=== PATIENT | male | born 1955 | race Caucasian/White ===

== ENCOUNTER 2017-07-24 01:26 | Emergency (ER) | payer OTHER ==
[2017-07-24 01:56] LABS: #Eosinphils 0.2 thou/uL (0.0-0.7); #Lymphocytes 3.8 thou/uL (1.20-3.40); #Monocytes 0.4 thou/uL (0.11-0.59); #Neutrophils 3.6 thou/uL (1.40-6.50); %Basophils 0.3 % (0.0-1.0); %Eosinophils 2.2 % (0.0-10.0); %Lymphocytes 47.4 % (21.0-51.0); %Monocytes 5.5 % (0.0-10.0); Hematocrit 44.3 % (42.0-52.0); Mean Platelet Volume 6.2 fL (7.4-10.4); Red Blood Cell (RBC) Count 4.79 mill/uL (4.70-6.10)
[2017-07-24 02:10] LABS: ALT (SGPT) 33 U/L (8-55); AST (SGOT) 19 U/L (5-34); Alkaline Phosphatase 65 U/L (40-150); Anion Gap 12 mmol/L (10-20); BUN (Urea Nitrogen) 17 mg/dL (8.4-25.7); Bilirubin, Total 0.3 mg/dL (0.2-1.2); Calc. Creatinine Clearance 0 mL/min (70-130); Calcium 9.5 mg/dL (7.8-10.44); Carbon Dioxide 24 mmol/L (22-29); Chloride 107 mmol/L (98-107); Estimated GFR-MDRD Greater than 90; Globulin 3.8 g/dL (2.4-3.5); Protein, Total 7.7 g/dL (6.0-8.3)
[2017-07-24] MEDS ORDERED: Morphine 10 MG/ML VIAL ONE (02:48)
[2017-07-24] MEDS ORDERED: Ondansetron ODT 4 MG TAB ONE (02:48)
[2017-07-24] MEDS ORDERED: Benzocaine 20% Spray 60 ML CAN ONE (05:09)
--- NOTE | 2017-07-24 08:18 | CT ---
PRELIMINARY REPORT/[facility]/EMERGENCY AFTER HOURS PROCEDURE: EXAM: CT Abdomen and Pelvis Without Intravenous Contrast CLINICAL HISTORY: 61 years old, male; Pain; Abdominal pain; Flank; Right; Patient HX: R/O stone TECHNIQUE: Axial computed tomography images of the abdomen and pelvis without intravenous contrast. Coronal reformatted images were created and reviewed. COMPARISON: No relevant prior studies available. FINDINGS: Lower thorax: No acute findings. ABDOMEN: Liver: No acute findings. Gallbladder and bile ducts: No acute findings. No calcified stones. No ductal dilation. Pancreas: No acute findings. No ductal dilation. Spleen: No acute findings. No splenomegaly. Adrenals: No acute findings. No mass. Kidneys and ureters: Mild right hydronephrosis and stranding secondary to 4 mm proximal ureteral sto ne. No left sided obstruction. Stomach and bowel: No acute findings. No obstruction. No mucosal thickening. Appendix: No findings to suggest acute appendicitis. PELVIS: Bladder: No acute findings. No stones. Reproductive: Bilateral hydroceles, incompletely visualized. ABDOMEN and PELVIS: Intraperitoneal space: No acute findings. No free air. No significant fluid collection. Bones/joints: Chronic degenerative spinal changes without acute fracture or dislocation. Soft tissues: No acute findings. Vasculature: There are atheromatous changes of the abdominal aorta without aneurysm. Lymph nodes: No acute findings. No enlarged lymph nodes. IMPRESSION: Obstructing proximal right ureteral stone. Bilateral hydroceles, incompletely visualized. Thank you for allowing us to participate in the care of your patient. Dictated and Authenticated by: Vanessa Wilson MD 07/24/2017 4:07 AM Central Time ([place] \T\ [place]) FINAL REPORT ABDOMEN AND PELVIC CT SCAN WITHOUT IV CONTRAST: EMERGENCY AFTER HOURS EXAMINATION TIME: 3:42 a.m. DATE: 07/24/17. Mildly obstructing right proximal ureteral calculus 0.4 cm. Bilateral hydroceles. POS: [facility]
== END 2017-07-24 04:30 | disposition home or self-care (01) ==
LOC: ERS 01:26
DX: N13.2 Hydronephrosis with renal and ureteral calculous obstruction (principal); E78.5 Hyperlipidemia, unspecified; I10 Essential (primary) hypertension
CPT/HCPCS: 36415; 74176; 80053; 85025; 96361; 96374; J2270; Q0162

== ENCOUNTER 2017-07-27 03:22 | Emergency (ER) | payer OTHER ==
[2017-07-27] MEDS ORDERED: Morphine 10 MG/ML VIAL ONE (03:57)
[2017-07-27] MEDS ORDERED: Ketorolac Tromethamine 30 MG/ML VIAL ONE (03:57)
[2017-07-27] MEDS ORDERED: Ondansetron HCl/PF 4 MG/2 ML Vial ONE (04:25)
[2017-07-27] MEDS ORDERED: Ondansetron ODT 4 MG TAB ONE (04:29)
[2017-07-27] MEDS ORDERED: Tamsulosin HCl 0.4 MG CAP PO SCH (04:30)
[2017-07-27 04:38] LABS: Bilirubin Negative (Negative); Blood, Urine Large (Negative); Glucose, Urine (Dipstick) Negative (Negative); Ketone, Urine Negative (Negative); Nitrite Negative (Negative); Protein, Urine (Dipstick) Negative (Neg-Trace); Urobilinogen 0.2 mg/dL (0.2-1.0)
[2017-07-27 04:40] LABS: Bacteria/HPF None Seen HPF (None Seen); Hyaline Casts/LPF 0-3 HYALINE CAST LPF (0-3 Hyaline); Squamous Epithelial 0-3 HPF (0-3); WBC/HPF 0-3 HPF (0-3)
[2017-07-27] MEDS ORDERED: HYDROcodone/Acetaminophen 10/325 mg Tablet ONE (06:59)
== END 2017-07-27 07:17 | disposition home or self-care (01) ==
LOC: ERS 03:22
DX: N20.1 Calculus of ureter (principal); E78.5 Hyperlipidemia, unspecified; I10 Essential (primary) hypertension; Z79.899 Other long term (current) drug therapy
CPT/HCPCS: 81003; 81015; 96361; 96374; 96375; J1885; J2270; J2405; Q0162

== ENCOUNTER 2017-08-03 11:15 | Outpatient (CLI) | payer OTHER ==
[2017-08-03 11:42] LABS: Bilirubin Negative (Negative); Blood, Urine Negative (Negative); Glucose, Urine (Dipstick) Negative (Negative); Ketone, Urine Negative (Negative); Nitrite Negative (Negative); Protein, Urine (Dipstick) Negative (Neg-Trace); Urobilinogen 0.2 mg/dL (0.2-1.0)
[2017-08-03 11:56] LABS: Bacteria/HPF None Seen HPF (None Seen); Hyaline Casts/LPF 0-3 HYALINE CAST LPF (0-3 Hyaline); RBC/HPF None Seen HPF (0-3); Squamous Epithelial None Seen HPF (0-3); WBC/HPF None Seen HPF (0-3)
--- NOTE | 2017-08-03 14:33 | RAD ---
AP ABDOMINAL RADIOGRAPH: Date: 08-03-17 History: Right ureteral stone. Comparison: CT abdomen/pelvis, 07-24-17. FINDINGS: There is a calcification overlying the right hemipelvis which has lucent center and likely represents a small phlebolith. The right ureteral calculus adjacent to the inferior endplate of the L3 vertebra l body is not definitely visualized on this examination although there is questionable faint area of increased density. No additional suspicious calcifications are seen. Bowel gas pattern is nonspecific . Mild degenerative changes are seen in the spine. IMPRESSION: 1. Nonspecific bowel gas pattern. 2. No definitive suspicious calcifications are seen. The proximal right ureteral calculus is not well visualized on this exam. POS: [facility]
== END 2017-08-03 11:16 | disposition home or self-care (01) ==
LOC: RAD 11:15
PROVIDERS: ATTEND Urology
DX: N20.1 Calculus of ureter (principal)
CPT/HCPCS: 74000; 81001

== ENCOUNTER 2017-08-12 03:30 | Emergency (ER) | payer OTHER ==
[2017-08-12] MEDS ORDERED: Ondansetron HCl/PF 4 MG/2 ML Vial ONE (03:48)
[2017-08-12] MEDS ORDERED: Ketorolac Tromethamine 30 MG/ML VIAL ONE (03:48)
[2017-08-12 04:31] LABS: ALT (SGPT) 49 U/L (8-55); AST (SGOT) 33 U/L (5-34); Alkaline Phosphatase 73 U/L (40-150); Anion Gap 13 mmol/L (10-20); BUN (Urea Nitrogen) 15 mg/dL (8.4-25.7); Bilirubin, Total 0.3 mg/dL (0.2-1.2); Calc. Creatinine Clearance 0 mL/min (70-130); Calcium 9.3 mg/dL (7.8-10.44); Carbon Dioxide 27 mmol/L (22-29); Chloride 107 mmol/L (98-107); Estimated GFR-MDRD 61; Globulin 3.9 g/dL (2.4-3.5); Protein, Total 7.9 g/dL (6.0-8.3)
[2017-08-12 04:36] LABS: Band 2 % (5-11); Hematocrit 44.8 % (42.0-52.0); Mean Platelet Volume 6.5 fL (7.4-10.4); Neutrophil 27 % (42-75); Reactive Lymphocytes 11 % (0-10); White Blood Cell (WBC) Count 10.7 thou/uL (4.8-10.8)
[2017-08-12 05:16] LABS: Bilirubin Negative (Negative); Blood, Urine Small (Negative); Glucose, Urine (Dipstick) Negative (Negative); Ketone, Urine Negative (Negative); Nitrite Negative (Negative); Protein, Urine (Dipstick) 30 mg/dL (Neg-Trace); Urobilinogen 0.2 mg/dL (0.2-1.0)
[2017-08-12] MEDS ORDERED: Morphine 2 mg/2ml in 0.9% NaCl PF SYRINGE ONE (05:16)
[2017-08-12 05:19] LABS: Bacteria/HPF None Seen HPF (None Seen); Hyaline Casts/LPF 0-3 HYALINE CAST LPF (0-3 Hyaline); Squamous Epithelial 0-3 HPF (0-3); WBC/HPF 0-3 HPF (0-3)
--- NOTE | 2017-08-12 10:22 | CT ---
PRELIMINARY REPORT/[facility]/EMERGENCY AFTER HOURS PROCEDURE: EXAM: CT Abdomen and Pelvis Without Intravenous Contrast CLINICAL HISTORY: 61 years old, male; Pain; Abdominal pain; Generalized; Patient HX: R/O stone TECHNIQUE: Axial computed tomography images of the abdomen and pelvis without intravenous contrast. Coronal reformatted images were created and reviewed. COMPARISON: CT Stone Protocol 2017-07-24 03:41 FINDINGS: Lower thorax: No acute findings. ABDOMEN: Liver: Unremarkable. Gallbladder and bile ducts: Unremarkable. Pancreas: Unremarkable. Spleen: Normal. Adrenals: Normal. Kidneys and ureters: 4 mm right ureteral stone a few centimeters proximal to the UVJ, previously just beyond the UPJ; mild hydroureteronephrosis and perinephric fat stranding, increased. No other urolit hiasis. Unremarkable left kidney. Stomach and bowel: Unremarkable. No obstruction. Appendix: No findings to suggest acute appendicitis. PELVIS: Bladder: Underdistended. Reproductive: Unremarkable. ABDOMEN and PELVIS: Intraperitoneal space: No free air. No significant fluid collection. Bones/joints: Bilateral L5-S1 spondylolysis and grade 1 anterolisthesis. Soft tissues: Unremarkable. Vasculature: Unremarkable. Lymph nodes: Unremarkable. No enlarged lymph nodes. IMPRESSION: Distal passage of the right ureteral stone with mild hydroureteronephrosis and perinephric fat strand ing, increased. Thank you for allowing us to participate in the care of your patient. Dictated and Authenticated by: Adarsh Cartagena MD 08/12/2017 4:32 AM Central Time ([place] & [place]) FINAL REPORT EMERGENCY AFTER HOURS CT ABDOMEN AND PELVIS: Date: 08/12/17 IMPRESSION: I agree with the preliminary interpretation given by Hailey. Interval distal migration of previously de scribed right ureteral calculus with persistent right hydronephrosis and right hydroureter. The calcu matthew is several centimeters proximal to the UVJ on the current study. POS: [facility]
== END 2017-08-12 06:04 | disposition home or self-care (01) ==
LOC: ERS 03:30
DX: N13.30 Unspecified hydronephrosis (principal); E78.5 Hyperlipidemia, unspecified; I10 Essential (primary) hypertension; Z85.828 Personal history of other malignant neoplasm of skin
CPT/HCPCS: 74176; 80053; 81003; 81015; 83605; 85025; 87086; 96374; 96375; J1885; J2270; J2405

== ENCOUNTER 2017-08-24 08:08 | Outpatient (CLI) | payer OTHER ==
--- NOTE | 2017-08-24 09:11 | CT ---
CT OF THE ABDOMEN AND PELVIS WITHOUT IV CONTRAST: HISTORY: Right-sided abdominal pain for 3-4 weeks. COMPARISON: Prior exam dated 08/12/17. FINDINGS: The lung bases are clear. There is stable mild right hydronephrosis. The previously seen 3.6 mm calculus at the distal right u reter is now at the right UVJ. Unopacified liver, spleen, pancreas, and adrenal glands appear within normal limits. There is a stab le slightly hypodense exophytic lesion off the inferior pole of the right kidney. This is seen as a small cyst on the right upper quadrant ultrasound dated 05/19/16. No free fluid or enlarged lymph nodes are evident. There is a normal appendix in the right lower jeannie drant. Scattered degenerative and osteoarthritic change. IMPRESSION: 1. Distal migration of the right ureteral stone now at the level of the ureterovesical junction caus ing stable mild right hydronephrosis. 2. Stable right renal cyst. 3. Other findings as above. POS: [facility]
[2017-08-24 10:31] LABS: Bilirubin Negative (Negative); Blood, Urine Negative (Negative); Glucose, Urine (Dipstick) Negative (Negative); Ketone, Urine Negative (Negative); Nitrite Negative (Negative); Protein, Urine (Dipstick) Negative (Neg-Trace); Urobilinogen 0.2 mg/dL (0.2-1.0)
[2017-08-24 10:36] LABS: Hematocrit 47.7 % (42.0-52.0); Mean Platelet Volume 6.6 fL (7.4-10.4); Red Blood Cell (RBC) Count 5.18 mill/uL (4.70-6.10); White Blood Cell (WBC) Count 6.1 thou/uL (4.8-10.8)
[2017-08-24 10:47] LABS: Bacteria/HPF None Seen HPF (None Seen); Hyaline Casts/LPF 0-3 HYALINE CAST LPF (0-3 Hyaline); RBC/HPF 0-3 HPF (0-3); Squamous Epithelial None Seen HPF (0-3); WBC/HPF None Seen HPF (0-3)
[2017-08-24 10:55] LABS: Anion Gap 11 mmol/L (10-20); BUN (Urea Nitrogen) 11 mg/dL (8.4-25.7); Calc. Creatinine Clearance 0 mL/min (70-130); Calcium 9.7 mg/dL (7.8-10.44); Carbon Dioxide 28 mmol/L (22-29); Chloride 104 mmol/L (98-107); Estimated GFR-MDRD Greater than 90
== END 2017-08-24 08:09 | disposition home or self-care (01) ==
LOC: CT 08:08
PROVIDERS: ATTEND Urology
DX: Z01.818 Encounter for other preprocedural examination (principal); N20.1 Calculus of ureter; N28.1 Cyst of kidney, acquired
CPT/HCPCS: 74176; 80048; 81001; 85027; 87086; 93005; 93010

== ENCOUNTER 2017-08-26 06:09 | Day surgery (SDC) | payer OTHER ==
[2017-08-24 08:17] VITALS: BMI 29.1
[2017-08-26] MEDS ORDERED: Levofloxacin 500 mg/D5W 100 ml Premix Bag ONE (06:26)
[2017-08-26 06:44] LABS: PTT 36.7 SEC (22.9-36.1); Prothrombin Time 13.7 SEC (12.0-14.7)
[2017-08-26] MEDS ORDERED: Promethazine HCl 25 MG/ML VIAL ONE (07:10)
[2017-08-26] MEDS ORDERED: Fentanyl 100 MCG/2 ML VIAL ONE (07:10)
[2017-08-26] MEDS ORDERED: Midazolam HCl 2 mg/2 ml Vial ONE (07:10)
[2017-08-26] MEDS ORDERED: Iothalamate Meglumine 60% 50 ML VIAL FS ONE (07:14)
[2017-08-26] MEDS ORDERED: Famotidine/PF 20 mg/2ml Vial ONE (07:40)
--- NOTE | 2017-08-26 09:06 | OP ---
DATE OF PROCEDURE: 08/26/2017 SERVICE: Urology. SURGEON: Jassi Santana M.D. PREOPERATIVE DIAGNOSIS: Right ureteral stone. POSTOPERATIVE DIAGNOSIS: Right ureteral stone. PROCEDURES PERFORMED: Right ureteroscopy, laser lithotripsy, basket extraction of stone, and placeme nt of a 6 x 26 double-J stent. INDICATIONS FOR PROCEDURE: Mr. Ford is a 61-year-old white male who initially presented to md for right flank pain. CT at that time demonstrated a 4 mm proximal right ureteral stone. He underwent a trial of medical expulsive therapy, but failed to pass the stone. Repeat CT prior to his procedure demonstrated that the stone was now in the distal ureter; however, there were no other stones noted a nd he had still not passed the stone. He is now coming in for removal of the stone as he has had an adequate trial of passage without relief of symptoms or ability to pass this stone. All risks and be nefits have been explained. DESCRIPTION OF PROCEDURE: After identification of armband and verification of consent, the patient w as brought to the operating room where he underwent general anesthesia with LMA. He was placed in do rsal lithotomy position and prepped and draped in the usual sterile fashion. After appropriate timeo ut, a lubricated 22 Swedish rigid cystoscope was introduced per urethra into the bladder. Attention w as turned to the right ureteral orifice which was cannulated with a 0.035 sensor wire up to the level of the renal pelvis. The bladder was then emptied and the cystoscope removed leaving the wire in pl matt as a safety wire. A semi rigid ureteroscope was then passed alongside the sensor wire into the b ladder and then into the distal ureter where immediately the stone was apparent. A 365 micron laser fiber was then used to fragment the stone into small pieces and the 1.9 Swedish 0 tip nitinol basket w as used to grasp the remaining fragments and remove them for stone analysis. Upon final ureteroscopy , there did not appear to be any other fragments within the ureter. There was some mild mucosal mer rosa, but no other significant issues. The ureteroscope was then withdrawn and the cystoscope was ba ckloaded over the sensor wire back into the bladder. A 6 x 26 double-J stent was advanced over the s ensor wire up to the level of the renal pelvis. The wire was then removed leaving a good curl in the pelvis and good curl in the bladder. The bladder was then emptied and the cystoscope removed. The patient awakened and taken to PACU for recovery in stable condition. COMPLICATIONS: None. ESTIMATED BLOOD LOSS: Minimal. RETAINED TUBES AND DRAINS: A 6 x 26 double-J stent on the right. SPECIMENS: Stone for stone analysis. DISPOSITION: The patient will be discharged home and follow up with me in 1 week for cystoscopy and stent removal.
[2017-08-26] MEDS ORDERED: Ketorolac Tromethamine 30 MG/ML VIAL ONE (15:38)
[2017-08-26] MEDS ORDERED: Dexamethasone 20 MG/5 ML VIAL ONE (15:38)
[2017-08-26] MEDS ORDERED: PROPOFOL 200 MG/20 ML VIAL ONE (15:38)
[2017-08-26] MEDS ORDERED: Lidocaine 1% PF 5 ML VIAL ONE (15:38)
[2017-08-26] MEDS ORDERED: ePHEDrine/0.9% NaCl/PF SYRINGE 50 mg/10 ml ONE (15:38)
[2017-08-26] MEDS ORDERED: PHENYLEPHRINE-NS 100 MCG/ML 10 ML SYRINGE ONE (15:38)
[2017-08-26] MEDS ORDERED: Ondansetron HCl/PF 4 MG/2 ML Vial ONE (15:38)
[2017-08-31 13:16] LABS: CA Oxalate Monohydrate 98 % (.); Color Brown (.)
== END 2017-08-26 10:07 | disposition home or self-care (01) ==
LOC: SDC 06:09
PROVIDERS: ATTEND Urology
PROC: 0T768DZ Dilation of Right Ureter with Intraluminal Device, Via Natural or Artificial Opening Endoscopic (ICD-10-PCS; principal; 2017-08-26)
PROC: 0TF68ZZ Fragmentation in Right Ureter, Via Natural or Artificial Opening Endoscopic (ICD-10-PCS; principal; 2017-08-26)
DX: N20.1 Calculus of ureter (principal); E78.2 Mixed hyperlipidemia; I10 Essential (primary) hypertension; N43.3 Hydrocele, unspecified; M10.9 Gout, unspecified; Z85.828 Personal history of other malignant neoplasm of skin; Z87.891 Personal history of nicotine dependence; Z88.8 Allergy status to other drugs, medicaments and biological substances; Z79.899 Other long term (current) drug therapy
CPT/HCPCS: 36415; 76000; 82365; 85610; 85730; 88300; C1769; J1100; J1885; J1956; J2001; J2250; J2405; J2550; J2704; J3010; Q9961; S0028

== ENCOUNTER 2018-03-02 09:16 | Outpatient (CLI) | payer BC ==
[2018-03-02 10:44] LABS: Hemoglobin 15.6 g/dL (14.0-18.0); Mean Corpuscular HGB CONC 35.9 g/dL (32.0-36.0); Mean Corpuscular Volume 89.1 fL (78.0-98.0); Mean Platelet Volume 6.2 fL (7.4-10.4); Platelet Count 283 thou/uL (130-400); RBC Distribution Width 11.8 % (11.5-14.5); Red Blood Cell (RBC) Count 4.88 mill/uL (4.70-6.10); White Blood Cell (WBC) Count 7.3 thou/uL (4.8-10.8)
--- NOTE | 2018-03-02 11:13 | RAD ---
PA AND LATERAL VIEWS CHEST: Date: 03/02/18 HISTORY: Preoperative evaluation. FINDINGS: Comparison made with exam of 04/28/16. The heart size is normal. The lungs are expanded without focal areas of consolidation, pneumothorax, or pleural effusions. No acute osseous abnormalities are seen. IMPRESSION: No radiographic evidence of acute cardiopulmonary process. POS: [facility]
[2018-03-02 11:34] LABS: Anion Gap 15 mmol/L (10-20); BUN (Urea Nitrogen) 13 mg/dL (8.4-25.7); Calc. Creatinine Clearance 0 mL/min (70-130); Calcium 9.5 mg/dL (7.8-10.44); Carbon Dioxide 23 mmol/L (23-31); Chloride 106 mmol/L (98-107); Estimated GFR-MDRD Greater than 90; Glucose 92 mg/dL (80-115); Potassium 4.6 mmol/L (3.5-5.1); Sodium 139 mmol/L (136-145)
== END 2018-03-02 09:17 | disposition home or self-care (01) ==
LOC: LABBT 09:16
PROVIDERS: ATTEND Dentist Oral and Maxillofacial Surgery
DX: Z01.818 Encounter for other preprocedural examination (principal); Q38.1 Ankyloglossia
CPT/HCPCS: 71046; 80048; 85027; 93005; 93010

== ENCOUNTER 2018-03-07 06:05 | Day surgery (SDC) | payer BC ==
[2018-03-02 09:37] VITALS: BMI 27.1
[2018-03-07] MEDS ORDERED: Dexamethasone 4 mg/ml Vial ONE (06:20)
[2018-03-07] MEDS ORDERED: Clindamycin/D5W 900 mg/50 ml Premix Bag ONE (06:20)
[2018-03-07] MEDS ORDERED: Lidocaine 1% w/Epinephrine 1:100K 30 ML VIAL ONE (06:28)
[2018-03-07] MEDS ORDERED: Hydrocortisone 1% Cream 30 GM TUBE ONE (06:28)
[2018-03-07] MEDS ORDERED: Chlorhexidine Gluconate 15 ML UDCUP SSP ONE ×2 (06:28→06:29)
[2018-03-07] MEDS ORDERED: Midazolam HCl 2 mg/2 ml Vial ONE (07:03)
[2018-03-07] MEDS ORDERED: Fentanyl 250 MCG/5 ML VIAL ONE (07:03)
[2018-03-07] MEDS ORDERED: HYDROmorphone 0.5 MG/0.5 ML SYRINGE ONE (07:19)
[2018-03-07] MEDS ORDERED: Ondansetron HCl/PF 4 MG/2 ML Vial ONE (08:04)
[2018-03-07] MEDS ORDERED: Fentanyl 100 MCG/2 ML VIAL ONE (09:48)
--- NOTE | 2018-03-07 10:51 | OP ---
DATE OF PROCEDURE: 03/07/2018 PREOPERATIVE DIAGNOSES: 1. Bilateral mandibular lingual guera. 2. Ankyloglossia. POSTOPERATIVE DIAGNOSES: 1. Large bilateral mandibular guera. 2. Ankyloglossia. PROCEDURES PERFORMED: Surgical removal of bilateral lingual guera. SURGEON: Braeden Carrillo D.D.S. COMPLICATIONS: None. SPECIMENS: None. DRAINS: None. DISPOSITION: The patient was stable, extubated, and transferred to the postop recovery unit. ANESTHESIA: General endotracheal anesthesia through nasal tube. BRIEF PATIENT HISTORY/PROCEDURE IN DETAIL: This is a 62-year-old white male with history of sleep ap carolynn as well as difficulty speaking and moving his tongue due to large bilateral lingual guera. The pa tienaeem said that of note, the one of the lower right side seems to be growing rapidly over the last 2 years. The patient was taken to the operating room and prepped and draped in sterile fashion. A throat pack was placed. Infiltration with 1% lidocaine 1:10,000 epinephrine as well as bilateral inferior alveo lar nerve blocks were given. A lingual circular incision was made around the necks of the teeth from the second molar on the lower right, the first molar on the lower left. A full thickness mucoperios teal flap was elevated along the lingual of the mandible. On the right side of note, the tissue was very thin and friable as well as having a massive mandibular lingual guera which crossed the midline. There were several friable areas that had tears in the mucosa. Once a full thickness mucoperiosteal flap was elevated over the guera, a drill 703 was used to make a small trough at the junction of the guera to the mandible. They were then removed with a gentle chisel. Remaining protuberant areas were smoothed with a 703 bur. The areas were irrigated thoroughly. Closure was done with 4-0 chromic gu t. There was no excessive bleeding, no signs of hematoma formation. The throat pack was then remove d. Oropharynx was suctioned with Yankauer suction. The closure was done with an interdental 4-0 chr omic gut.
== END 2018-03-07 11:40 | disposition home or self-care (01) ==
LOC: SDC 06:05
PROVIDERS: ATTEND Dentist Oral and Maxillofacial Surgery
DX: M27.0 Developmental disorders of jaws (principal); Q38.1 Ankyloglossia; I10 Essential (primary) hypertension; Z79.899 Other long term (current) drug therapy
CPT/HCPCS: 96374; J1100; J1170; J2001; J2250; J2405; J3010; J3490

== ENCOUNTER 2018-11-08 14:59 | Outpatient (CLI) | payer BC ==
[2018-11-08 13:09] LABS: Estimated GFR-MDRD - POC Greater than 90
--- NOTE | 2018-11-08 14:33 | CT ---
CT SOFT TISSUE NECK: History: Sialadenitis. Right sided neck mass. Technique: Contrast enhanced CT images of the soft tissue neck obtained. FINDINGS: The paranasal sinuses are well aerated. No significant evidence of pharyngeal mucosal masses are seen. The right submandibular gland has a 2 mm sialolith with adjacent area of ductal dilatation. No other definite sialolith seen. No evidence o f lymphadenopathy is seen. The thyroid gland is unremarkable. IMPRESSION: 1. 2 mm right submandibular gland sialolith. POS: [facility]
[~2018-11-08 14:59] MED LIST: Iopamidol 370 76% 100 ML VIAL ONE
== END 2018-11-08 15:00 | disposition home or self-care (01) ==
LOC: BICCT 14:59
PROVIDERS: ATTEND Otolaryngology Plastic Surgery within the Head & Neck
DX: K11.20 Sialoadenitis, unspecified (principal); K11.5 Sialolithiasis
CPT/HCPCS: 70491; 82565

== ENCOUNTER 2018-12-07 12:05 | Day surgery (SDC) | payer BC ==
[2018-12-06 16:29] VITALS: BMI 27.8
[2018-12-07] MEDS ORDERED: Lidocaine 1% w/Epinephrine 1:100K 20 ML VIAL ONE (13:58)
[2018-12-07] MEDS ORDERED: Fentanyl 100 MCG/2 ML VIAL ONE ×2 (14:07→15:22)
[2018-12-07] MEDS ORDERED: Meperidine HCl/PF 25 MG/ML VIAL ONE (15:16)
[2018-12-07] MEDS ORDERED: Hydrocodone-Acetamin 15 ML UDCUP ONE (16:27)
--- NOTE | 2018-12-08 08:47 | OP ---
DATE OF PROCEDURE: 12/07/2018 PREOPERATIVE DIAGNOSIS: Chronic right submandibular gland sialoadenitis. POSTOPERATIVE DIAGNOSES: Chronic right submandibular gland sialoadenitis. PROCEDURE PERFORMED: Excision of right submandibular gland. ESTIMATED BLOOD LOSS: 10 mL. COMPLICATIONS: None. ANESTHESIA: GETA. DESCRIPTION OF PROCEDURE: The patient was taken to the operating room and placed supine on the table. General endotracheal anesthesia was obtained by the Anesthesia Staff. The head was tilted and gently exposing the right neck and shoulder roll was placed and the patient was prepped and draped in standard surgical fashion. Following this, an incision was made, approximately 2 cm below the angle of the mandible through skin and subcutaneous tissue and through the platysmal layer. Subplatysmal elevation was elevated up to the level of the mandible. Following this, the fascia overlying the submandibular gland was elevated along with the marginal mandibular nerve and was retracted superiorly. Following this, the gland was freed from its posterior attachments to the facial vein and the facial vein and artery were then suture ligated before crossing the mandible area. Following this, the gland was displaced inferiorly and the lingual nerve was identified. Following this, the post ganglionic fibers from the lingual nerves were suture ligated adjacent to the submandibular gland. Following this, the gland was from the mylohyoid muscle anteriorly and the hypoglossal nerve was identified. Following this, the duct of the submandibular gland was suture ligated immediately adjacent to the floor of the mouth. Following this, the gland was removed. The wound was irrigated. A small drain was placed and the wound was closed using 3-0 Monocryl stitches for the platysmal layer and 4-0 for the subcuticular layer. Dermabond was placed for the skin. The patient tolerated the procedure well. Job ID: [id number]
== END 2018-12-07 18:30 | disposition home or self-care (01) ==
LOC: SDC 12:05
PROVIDERS: ATTEND Otolaryngology Plastic Surgery within the Head & Neck
PROC: 0CTG0ZZ Resection of Right Submaxillary Gland, Open Approach (ICD-10-PCS; principal; 2018-12-07)
DX: K11.23 Chronic sialoadenitis (principal); K11.5 Sialolithiasis; I10 Essential (primary) hypertension; M10.9 Gout, unspecified; J30.2 Other seasonal allergic rhinitis; H90.3 Sensorineural hearing loss, bilateral; H93.19 Tinnitus, unspecified ear; Z87.891 Personal history of nicotine dependence; Z79.899 Other long term (current) drug therapy
CPT/HCPCS: 88307; J2001; J2175; J3010

== ENCOUNTER 2019-01-24 08:53 | Outpatient (CLI) | payer BC | END 2019-01-24 08:54 | disposition home or self-care (01) | LOC: CTENTCT 08:53 | PROVIDERS: ATTEND Otolaryngology Plastic Surgery within the Head & Neck | DX: J32.9 Chronic sinusitis, unspecified (principal) | CPT/HCPCS: 70486 ==

== ENCOUNTER 2019-07-12 06:35 | Day surgery (SDC) | payer BC ==
[2019-07-11 12:50] VITALS: BMI 28.7
[2019-07-12] MEDS ORDERED: Midazolam HCl 2 mg/2 ml Vial ONE (07:49)
[2019-07-12] MEDS ORDERED: Fentanyl 100 MCG/2 ML VIAL ONE (07:49)
[2019-07-12] MEDS ORDERED: Bacitracin Zinc Ointment 30 gm TUBE ONE (08:15)
[2019-07-12] MEDS ORDERED: Lidocaine 1% w/Epinephrine 1:100K 20 ML VIAL ONE (09:54)
[2019-07-12] MEDS ORDERED: Ondansetron PF 4 MG/2 ML Vial ONE (11:33)
[2019-07-12] MEDS ORDERED: Lidocaine 1% PF 5 ML VIAL ONE (11:33)
[2019-07-12] MEDS ORDERED: Dexamethasone 20 MG/5 ML VIAL ONE (11:33)
[2019-07-12] MEDS ORDERED: PROPOFOL 200 MG/20 ML VIAL ONE (11:33)
--- NOTE | 2019-07-12 16:56 | EKG ---
Test Reason : PREOP Blood Pressure : / mmHG Vent. Rate : 057 BPM Atrial Rate : 057 BPM P-R Int : 154 ms QRS Dur : 140 ms QT Int : 438 ms P-R-T Axes : 050 092 031 degrees QTc Int : 426 ms Sinus bradycardia Right bundle branch block Abnormal ECG Confirmed by TREVOR MATTSON ([id number]) on 07/12/2019 4:55:44 PM Referred By: DARIUS Confirmed By:TREVOR MATTSON
--- NOTE | 2019-07-13 14:14 | OP ---
DATE OF PROCEDURE: 07/12/2019 PREOPERATIVE DIAGNOSES: 1. Left tympanic membrane perforation. 2. Left conductive hearing loss. POSTOPERATIVE DIAGNOSES: 1. Left tympanic membrane perforation. 2. Left conductive hearing loss. PROCEDURES PERFORMED: 1. Left fat graft myringoplasty. 2. Binocular otomicroscopy. ESTIMATED BLOOD LOSS: 0 mL. COMPLICATIONS: None. ANESTHESIA: Mask. DESCRIPTION OF PROCEDURE: The patient was taken to the operating room, placed supine on the table. Mask anesthesia was obtained by the Anesthesia Staff. 1% lidocaine with 1:100,000 epinephrine was injected into the posterior aspect of the left earlobe. The operating microscope was then brought in the field and the tympanic membrane was visualized. There was noted to be a 15% to 20% perforation of the central tympanic membrane on the left side. The middle ear mucosa was noted to be healthy today. A Teran needle was used to rim the edges of this perforation and cupped forceps were used to remove the edges. Following this, a small incision was made on the posterior aspect of the left earlobe and a 1 x 1 cm squared piece of fat was harvested. The wound was closed using chromic gut stitches. Following this, the operating microscope was used along with a Teran needle and alligator forceps and cupped forceps to position the fat graft into a dumbbell fashion. The patient tolerated the procedure well. Job ID: [id number]
== END 2019-07-12 09:47 | disposition home or self-care (01) ==
LOC: SDC 06:35
PROVIDERS: ATTEND Otolaryngology Plastic Surgery within the Head & Neck
PROC: 09U887Z Supplement Left Tympanic Membrane with Autologous Tissue Substitute, Via Natural or Artificial Opening Endoscopic (ICD-10-PCS; principal; 2019-07-12)
DX: H72.02 Central perforation of tympanic membrane, left ear (principal); H90.12 Conductive hearing loss, unilateral, left ear, with unrestricted hearing on the contralateral side; H61.22 Impacted cerumen, left ear; I10 Essential (primary) hypertension; M10.9 Gout, unspecified; J30.9 Allergic rhinitis, unspecified; J34.3 Hypertrophy of nasal turbinates; Z87.891 Personal history of nicotine dependence; Z79.51 Long term (current) use of inhaled steroids; Z79.899 Other long term (current) drug therapy; Z88.8 Allergy status to other drugs, medicaments and biological substances
CPT/HCPCS: 93005; 93010; J1100; J2001; J2250; J2405; J2704; J3010

== ENCOUNTER 2022-01-01 09:00 | Inpatient (IN) | payer BC, MEDICARE ==
[2022-01-02 11:38] VITALS: BMI 28.7
[2022-01-06] MEDS ORDERED: Fentanyl 100 MCG/2 ML VIAL ONE ×3 (06:57→10:50)
[2022-01-06] MEDS ORDERED: Midazolam HCl 2 mg/2 ml Vial ONE (06:57)
[2022-01-06] MEDS ORDERED: cefOXitin 2 GM VIAL ONE ×2 (07:21→09:20)
[2022-01-06] MEDS ORDERED: Sodium Chloride 0.9% 100 ML ONE (07:22)
[2022-01-06] MEDS ORDERED: SUGAMMADEX SODIUM 200 MG/2 ML VIAL ONE (07:28)
[2022-01-06] MEDS ORDERED: Ketamine 50 MG/ML (10ML VIAL) ONE (07:28)
[2022-01-06] MEDS ORDERED: Lidocaine 1% PF 5 ML VIAL ONE (07:35)
[2022-01-06] MEDS ORDERED: Ketorolac Tromethamine 30 MG/ML VIAL ONE (07:35)
[2022-01-06] MEDS ORDERED: Bupivacaine HCl 0.5%/Epinephrine 1:200,000/PF 30 ml Vial ONE (07:35)
[2022-01-06] MEDS ORDERED: Rocuronium Bromide 10 MG/ML (10ML VIAL) ONE (07:35)
[2022-01-06] MEDS ORDERED: PROPOFOL 200 MG/20 ML VIAL ONE (07:35)
[2022-01-06] MEDS ORDERED: ePHEDrine 50 MG/ML VIAL ONE (07:35)
[2022-01-06] MEDS ORDERED: Glycopyrrolate 0.2 MG/ML 5 ML SYRINGE ONE (07:35)
[2022-01-06] MEDS ORDERED: Non-Formulary Medication 1 EACH PO PRN (10:54)
[2022-01-06] MEDS ORDERED: Ondansetron HCl/PF 4 MG/2 ML Vial IVP PRN (11:00)
[2022-01-06] MEDS ORDERED: Promethazine HCl 25 MG/ML VIAL IM/IV PRN (11:00)
[2022-01-06] MEDS ORDERED: HYDROcodone/Acetaminophen 7.5/325 mg Tablet PO PRN ×2 (11:45)
[2022-01-06] MEDS ORDERED: hydrALAZINE 20 MG/ML VIAL SLOW IVP PRN (11:45)
[2022-01-06] MEDS ORDERED: Promethazine HCl 25 MG/ML VIAL IM PRN (11:45)
[2022-01-06] MEDS: Fentanyl 100 MCG/2 ML VIAL SLOW IVP PRN ×2 (13:45→17:40)
[2022-01-06] MEDS: cefOXitin 2 GM in Sodium Chloride 0.9% 100 ML IVPB SCH (17:39)
[2022-01-06] MEDS: D5 1/2 NS w/20 mEq KCL 1,000 ML IV SCH (17:39)
[2022-01-06] MEDS: Famotidine/PF 20 mg/2ml Vial SLOW IVP SCH (20:34)
[2022-01-06] MEDS: Famotidine 20 MG TAB PO SCH (20:35)
[2022-01-07] MEDS: cefOXitin 2 GM in Sodium Chloride 0.9% 100 ML IVPB SCH (00:47)
[2022-01-07] MEDS: Fentanyl 100 MCG/2 ML VIAL SLOW IVP PRN ×3 (00:50→08:31)
[2022-01-07] MEDS: D5 1/2 NS w/20 mEq KCL 1,000 ML IV SCH ×2 (00:54→00:55)
[2022-01-07 07:10] LABS: #Lymphocytes 3.5 thou/uL (1.20-3.40); #Monocytes 0.8 thou/uL (0.11-0.59); #Neutrophils 7.9 thou/uL (1.40-6.50); %Eosinophils 0.2 % (0.0-10.0); %Lymphocytes 28.7 % (21.0-51.0); %Monocytes 6.8 % (0.0-10.0); %Neutrophils 64.3 % (42.0-75.0); Hemoglobin 14.2 g/dL (14.0-18.0); Mean Corpuscular HGB CONC 34.7 g/dL (32.0-36.0); Mean Corpuscular Hemoglobin 32.7 pg (27.0-31.0); Mean Corpuscular Volume 94.3 fL (78.0-98.0); Mean Platelet Volume 6.7 fL (7.4-10.4); Platelet Count 236 thou/uL (130-400); RBC Distribution Width 11.8 % (11.5-14.5); Red Blood Cell (RBC) Count 4.35 mill/uL (4.70-6.10); White Blood Cell (WBC) Count 12.3 thou/uL (4.8-10.8)
[2022-01-07 07:25] LABS: Anion Gap 11 mmol/L (10-20); BUN (Urea Nitrogen) 8 mg/dL (8.4-25.7); Calc. Creatinine Clearance 115 mL/min (70-130); Calcium 8.7 mg/dL (7.8-10.44); Carbon Dioxide 25 mmol/L (23-31); Chloride 108 mmol/L (98-107); Glucose 107 mg/dL (80-115); Potassium 4.2 mmol/L (3.5-5.1); Sodium 140 mmol/L (136-145)
[2022-01-07] MEDS: Enoxaparin Sodium 40 MG/0.4 ML SYRINGE SC SCH (08:30)
[2022-01-07] MEDS: Famotidine/PF 20 mg/2ml Vial SLOW IVP SCH ×2 (08:31→21:02)
[2022-01-07] MEDS: Famotidine 20 MG TAB PO SCH ×2 (08:31→21:01)
[2022-01-07] MEDS: Lisinopril 20 MG TAB PO SCH (08:32)
[2022-01-07] MEDS ORDERED: Lisinopril 10 MG TAB PO SCH (09:00)
[2022-01-07] MEDS: Ibuprofen 600 MG TAB PO PRN (18:53)
[2022-01-07] MEDS ORDERED: HYDROcodone/Acetaminophen 10/325 mg Tablet PO PRN ×2 (19:16→19:17)
[2022-01-07] MEDS: HYDROcodone/Acetaminophen 10/325 mg Tablet PO PRN (21:02)
[2022-01-08] MEDS: HYDROcodone/Acetaminophen 10/325 mg Tablet PO PRN ×5 (05:17→20:04)
[2022-01-08] MEDS: Lisinopril 20 MG TAB PO SCH (08:26)
[2022-01-08] MEDS: Famotidine 20 MG TAB PO SCH ×2 (08:26→20:04)
[2022-01-08] MEDS: Enoxaparin Sodium 40 MG/0.4 ML SYRINGE SC SCH ×2 (08:27→10:12)
[2022-01-08] MEDS: Famotidine/PF 20 mg/2ml Vial SLOW IVP SCH ×2 (10:09→20:10)
[2022-01-08] MEDS: Ondansetron PF 4 MG/2 ML Vial IVP PRN (16:14)
[2022-01-09] MEDS: HYDROcodone/Acetaminophen 10/325 mg Tablet PO PRN ×5 (00:37→20:36)
[2022-01-09] MEDS: Lisinopril 20 MG TAB PO SCH (08:14)
[2022-01-09] MEDS: Enoxaparin Sodium 40 MG/0.4 ML SYRINGE SC SCH (08:14)
[2022-01-09] MEDS: Famotidine 20 MG TAB PO SCH ×2 (08:14→20:36)
[2022-01-09] MEDS: Famotidine/PF 20 mg/2ml Vial SLOW IVP SCH ×2 (08:14→20:37)
[2022-01-09] MEDS: Ondansetron PF 4 MG/2 ML Vial IVP PRN (12:43)
[2022-01-09] MEDS: Ibuprofen 600 MG TAB PO PRN (13:27)
[2022-01-10] MEDS: HYDROcodone/Acetaminophen 10/325 mg Tablet PO PRN ×3 (02:45→10:55)
[2022-01-10] MEDS: Ondansetron PF 4 MG/2 ML Vial IVP PRN ×2 (04:14→12:36)
[2022-01-10] MEDS: Enoxaparin Sodium 40 MG/0.4 ML SYRINGE SC SCH (08:27)
[2022-01-10] MEDS: Famotidine 20 MG TAB PO SCH ×2 (08:27→20:30)
[2022-01-10] MEDS: Lisinopril 20 MG TAB PO SCH (08:28)
[2022-01-10] MEDS: Famotidine/PF 20 mg/2ml Vial SLOW IVP SCH ×2 (09:45→20:34)
[2022-01-10] MEDS ORDERED: Ketorolac Tromethamine 30 MG/ML VIAL IVP SCH ×2 (13:15→18:00)
[2022-01-10] MEDS: Lactated Ringer's 1,000 ML IV SCH (16:07)
[2022-01-10] MEDS ORDERED: Morphine 4 MG/ML VIAL SLOW IVP PRN (22:54)
[2022-01-11] MEDS: Lactated Ringer's 1,000 ML IV SCH ×2 (02:14→14:47)
[2022-01-11 05:35] LABS: #Eosinphils 0.2 thou/uL (0.0-0.7); #Lymphocytes 1.8 thou/uL (1.20-3.40); #Monocytes 0.5 thou/uL (0.11-0.59); #Neutrophils 4.4 thou/uL (1.40-6.50); %Basophils 0.4 % (0.0-1.0); %Eosinophils 2.8 % (0.0-10.0); %Lymphocytes 25.9 % (21.0-51.0); %Monocytes 7.1 % (0.0-10.0); %Neutrophils 63.8 % (42.0-75.0); Hemoglobin 12.9 g/dL (14.0-18.0); Mean Corpuscular HGB CONC 33.5 g/dL (32.0-36.0); Mean Corpuscular Hemoglobin 31.2 pg (27.0-31.0); Mean Corpuscular Volume 93.2 fL (78.0-98.0); Mean Platelet Volume 5.9 fL (7.4-10.4); Platelet Count 255 thou/uL (130-400); RBC Distribution Width 11.5 % (11.5-14.5); Red Blood Cell (RBC) Count 4.12 mill/uL (4.70-6.10); White Blood Cell (WBC) Count 6.8 thou/uL (4.8-10.8)
[2022-01-11 05:59] LABS: Anion Gap 13 mmol/L (10-20); BUN (Urea Nitrogen) 7 mg/dL (8.4-25.7); Calc. Creatinine Clearance 114 mL/min (70-130); Carbon Dioxide 27 mmol/L (23-31); Chloride 103 mmol/L (98-107); Glucose 85 mg/dL (80-115); Potassium 4.1 mmol/L (3.5-5.1); Sodium 139 mmol/L (136-145)
[2022-01-11] MEDS: Famotidine 20 MG TAB PO SCH ×2 (08:32→20:16)
[2022-01-11] MEDS: Lisinopril 20 MG TAB PO SCH (08:32)
[2022-01-11] MEDS: Enoxaparin Sodium 40 MG/0.4 ML SYRINGE SC SCH (08:32)
[2022-01-11] MEDS: Famotidine/PF 20 mg/2ml Vial SLOW IVP SCH (08:32)
[2022-01-11] MEDS ORDERED: Acetaminophen 500 MG TAB PO SCH (14:30)
[2022-01-11] MEDS: Ibuprofen 600 MG TAB PO PRN (16:39)
[2022-01-11] MEDS: HYDROcodone/Acetaminophen 5/325 mg Tablet PO PRN (20:16)
[2022-01-11] MEDS ORDERED: Acetaminophen 500 MG TAB PO PRN (21:00)
[2022-01-12] MEDS: Enoxaparin Sodium 40 MG/0.4 ML SYRINGE SC SCH (08:50)
[2022-01-12] MEDS: HYDROcodone/Acetaminophen 5/325 mg Tablet PO PRN (08:51)
[2022-01-12] MEDS: Lisinopril 20 MG TAB PO SCH (08:51)
[2022-01-12] MEDS: Famotidine 20 MG TAB PO SCH (08:52)
[2022-01-12 11:28] VITALS: BP 164/78; TEMP 97.9
[2022-01-12] MEDS: Ibuprofen 600 MG TAB PO PRN (11:29)
== END 2022-01-12 11:45 | disposition home or self-care (01) | DRG 330 ==
LOC: SURG A 01-06 06:00
PROVIDERS: ADMIT Surgery; ATTEND Surgery
PROC: 0DBN4ZZ Excision of Sigmoid Colon, Percutaneous Endoscopic Approach (ICD-10-PCS; principal; 2022-01-06)
DX: C18.7 Malignant neoplasm of sigmoid colon (principal); K56.7 Ileus, unspecified; Z20.822 Contact with and (suspected) exposure to COVID-19; Z79.899 Other long term (current) drug therapy
CPT/HCPCS: 36415; 36416; 80048; 85025; 88309; J0360; J0694; J1650; J1885; J2250; J2405; J2704; J3010; J3480; J3490; J7120; S0028

== ENCOUNTER 2022-01-01 14:04 | Outpatient (CLI) | payer BC ==
[2022-01-01 15:08] LABS: #Eosinphils 0.1 10x3/uL (0.0-0.5); #Monocytes 0.6 10x3/uL (0.0-1.1); #Neutrophils 4.2 10x3/uL (1.5-8.4); %Basophils 0.5 % (0.0-2.0); %Eosinophils 1.1 % (0.0-6.0); %Lymphocytes 38.8 % (18.0-47.0); %Monocytes 7.6 % (0.0-10.0); %Neutrophils 51.6 % (40.0-75.0); Hemoglobin 14.9 g/dL (13.5-17.5); Mean Corpuscular HGB CONC 33.7 g/dL (32.0-36.0); Mean Corpuscular Hemoglobin 30.3 pg (27.0-33.0); Mean Corpuscular Volume 89.8 fl (81.2-95.1); Mean Platelet Volume 9.2 fl (7.4-10.4); Platelet Count 292 10x3/uL (150-450); RBC Distribution Width 12.2 % (11.5-14.5); Red Blood Cell (RBC) Count 4.92 10x6/uL (4.32-5.72); White Blood Cell (WBC) Count 8.1 10x3/uL (3.5-10.5)
[2022-01-01 15:22] LABS: Anion Gap 14 mmol/L (10-20); BUN (Urea Nitrogen) 15 mg/dL (8.4-25.7); Calc. Creatinine Clearance 0 mL/min (70-130); Calcium 9.4 mg/dL (7.8-10.44); Carbon Dioxide 23 mmol/L (23-31); Chloride 111 mmol/L (98-107); Glucose 77 mg/dL (80-115); Potassium 4.3 mmol/L (3.5-5.1); Sodium 144 mmol/L (136-145)
[2022-01-01 19:48] LABS: Hemoglobin A1c 5.5 % (4.0-6.0)
[2022-01-02 00:19] LABS: SARS-CoV-2 PCR by NAA Not Detected (NotDetected)
== END 2022-01-01 14:05 | disposition home or self-care (01) ==
LOC: LABBT 14:04
PROVIDERS: ATTEND Surgery
DX: Z01.818 Encounter for other preprocedural examination (principal); Z20.822 Contact with and (suspected) exposure to COVID-19
CPT/HCPCS: 80048; 83036; 85025; 93005; 93010; U0003; U0005

== ENCOUNTER 2022-09-08 15:11 | Outpatient (CLI) | payer BC | END 2022-09-08 15:12 | disposition home or self-care (01) | LOC: BICULT 15:11 | PROVIDERS: ATTEND Urology | DX: N43.40 Spermatocele of epididymis, unspecified (principal) | CPT/HCPCS: 76870; 93976 ==

== ENCOUNTER 2023-04-12 11:59 | Outpatient (CLI) | payer BC ==
[2023-04-12 13:44] LABS: #Eosinphils 0.2 10x3/uL (0.0-0.5); #Monocytes 0.4 10x3/uL (0.0-1.1); #Neutrophils 3.3 10x3/uL (1.5-8.4); %Basophils 0.5 % (0.0-2.0); %Lymphocytes 37.6 % (18.0-47.0); %Monocytes 6.2 % (0.0-10.0); %Neutrophils 52.2 % (40.0-75.0); Hemoglobin 13.9 g/dL (13.5-17.5); Mean Corpuscular HGB CONC 34.9 g/dL (32.0-36.0); Mean Corpuscular Hemoglobin 30.8 pg (27.0-33.0); Mean Corpuscular Volume 88.2 fl (81.2-95.1); Mean Platelet Volume 9.4 fl (7.4-10.4); Platelet Count 231 10x3/uL (150-450); RBC Distribution Width 12.3 % (11.5-14.5); Red Blood Cell (RBC) Count 4.51 10x6/uL (4.32-5.72); White Blood Cell (WBC) Count 6.3 10x3/uL (3.5-10.5)
[2023-04-12 13:58] LABS: Anion Gap 15 mmol/L (10-20); BUN (Urea Nitrogen) 18 mg/dL (8.4-25.7); Calc. Creatinine Clearance 0 mL/min (70-130); Calcium 8.5 mg/dL (7.8-10.44); Carbon Dioxide 21 mmol/L (23-31); Chloride 107 mmol/L (98-107); Estimated GFR 88; Glucose 120 mg/dL (80-115); Potassium 4.1 mmol/L (3.5-5.1); Sodium 139 mmol/L (136-145)
[2023-04-12 14:31] LABS: Bilirubin Neg (Negative); Blood, Urine Negative (Negative); Glucose, Urine (Dipstick) Normal (Negative); Ketone, Urine Negative (Negative); Leukocyte Negative (Negative); Nitrite Negative (Negative); Protein, Urine (Dipstick) 15 mg/dl (Neg-Trace)
[2023-04-12 14:35] LABS: Clarity Clear (Clear)
[2023-04-12 14:39] LABS: Bacteria/HPF None Seen HPF (None Seen); RBC/HPF None Seen HPF (0-3); Squamous Epithelial None Seen HPF (0-3); WBC/HPF None Seen HPF (0-3)
== END 2023-04-12 12:00 | disposition home or self-care (01) ==
LOC: LABBT 11:59
PROVIDERS: ATTEND Surgery
DX: Z01.818 Encounter for other preprocedural examination (principal); K40.90 Unilateral inguinal hernia, without obstruction or gangrene, not specified as recurrent
CPT/HCPCS: 71046; 80048; 81001; 85025; 87086; 93005; 93010

== ENCOUNTER 2023-04-15 06:20 | Day surgery (SDC) | payer BC ==
[2023-04-12 12:39] VITALS: BMI 30.1
[2023-04-15] MEDS ORDERED: Bupivacaine/Epinephrine 0.25% 30 ML VIAL ONE (06:44)
[2023-04-15] MEDS ORDERED: Dexmedetomidine 200 MCG/2 ML VIAL ONE (07:06)
[2023-04-15] MEDS ORDERED: fentaNYL PF 100 MCG/2 ML SYRINGE ONE ×2 (07:06→10:27)
[2023-04-15] MEDS ORDERED: SUGAMMADEX SODIUM 200 MG/2 ML VIAL ONE (07:06)
[2023-04-15] MEDS ORDERED: CEFAZOLIN 2 GM VIAL ONE (07:27)
[2023-04-15] MEDS ORDERED: Sodium Chloride 0.9% 100 ML ONE (07:27)
[2023-04-15] MEDS ORDERED: Rocuronium Bromide 10 MG/ML (10ML VIAL) ONE (07:46)
[2023-04-15] MEDS ORDERED: Ondansetron PF 4 MG/2 ML Vial ONE (07:46)
[2023-04-15] MEDS ORDERED: Lidocaine 1% PF 5 ML VIAL ONE (07:46)
[2023-04-15] MEDS ORDERED: ePHEDrine Sulfate 50 MG/10 ML VIAL ONE (07:46)
[2023-04-15] MEDS ORDERED: Dexamethasone 20 MG/5 ML VIAL ONE (07:46)
[2023-04-15] MEDS ORDERED: Glycopyrrolate 0.2 MG/ML 5 ML SYRINGE ONE (07:46)
[2023-04-15] MEDS ORDERED: PROPOFOL 200 MG/20 ML VIAL ONE (07:46)
[2023-04-15] MEDS ORDERED: NEOSTIGMINE 3 MG/3 ML SYR 3 MG/3 ML SYRINGE ONE (07:46)
[2023-04-15] MEDS ORDERED: Bupivacaine 0.25% HCL 30 ML VIAL ONE (08:13)
[2023-04-15] MEDS ORDERED: Promethazine HCl 25 MG/ML VIAL ONE (11:28)
[2023-04-15] MEDS ORDERED: Morphine 4 MG/ML VIAL ONE (12:50)
[2023-04-15] MEDS ORDERED: HYDROcodone/Acetaminophen 5/325 mg Tablet ONE (13:22)
== END 2023-04-15 14:40 | disposition home or self-care (01) ==
LOC: SDC 06:20
PROVIDERS: ATTEND Surgery
PROC: 0VBJ0ZZ Excision of Right Epididymis, Open Approach (ICD-10-PCS; principal; 2023-04-15)
DX: K40.90 Unilateral inguinal hernia, without obstruction or gangrene, not specified as recurrent (principal); N43.40 Spermatocele of epididymis, unspecified
CPT/HCPCS: 88304; C1781; J1100; J2270; J2405; J2550; J2704; J3490; S0020

== ENCOUNTER 2023-05-03 15:48 | Outpatient (CLI) | payer BC | END 2023-05-03 15:49 | disposition home or self-care (01) | LOC: BICULT 15:48 | PROVIDERS: ATTEND Urology | DX: N43.40 Spermatocele of epididymis, unspecified (principal) | CPT/HCPCS: 76870; 93976 ==